=== PATIENT | female | born 1945 | race Caucasian/White ===

== ENCOUNTER 2017-02-24 12:24 | Day surgery (SDC) | payer OTHER, MEDICARE ==
[~2017-02-24 12:24] MED LIST: RINGERS SOLUTION,LACTATED 1,000 ML IV PRN
[2017-02-24] MEDS ORDERED: RINGERS SOLUTION,LACTATED 1,000 ML IV ONE (12:45)
[2017-02-24] MEDS ORDERED: RINGERS SOLUTION,LACTATED 1,000 ML IV PRN (14:09)
[2017-02-24 15:09] VITALS: BP 113/69
--- NOTE | 2017-02-24 17:49 | OR ---
Operative Report - Dictated Report Narrative: Operative Report Date of operation: 02/24/2017 Preoperative diagnosis: History of possible celiac disease. History of colon polyps. No recent dedicated colon studies. Postoperative diagnosis: Hiatal hernia. Gastropathy. Duodenitis (pathology and CLOtest pending). 3 mm polyp at the hepatic flexure. 4 mm polyp at 60 cm ( pathology pending) Operation: EGD with gastric and duodenal biopsies. Colonoscopy with hot biopsy forceps polypectomy at the hepatic flexure. Snare polypectomy and tattoo at 60 cm Surgeon: Dr Andrade Anesthesia: CHRISS PATRICK CRNA Indications for procedure: The patient is a 71-year-old female referred by Dr. Aguirre. The patient had possible celiac disease on a previous EGD although a gluten-free diet has not altered her symptoms. She had 3 tubular adenomas and a hyperplastic polyp removed on colonoscopy in 2003. She had a subsequent colonoscopy in 2004 which was normal. There is no family history of colon cancer Findings: Hiatal hernia. Gastropathy. Duodenitis (pathology and CLOtest pending). 3 mm polyp at the hepatic flexure. 4 mm polyp at 60 cm Narrative of procedure: The patient was identified preoperatively, and prior to the administration of anesthetic a multidisciplinary timeout was observed EGD: With the patient in the recumbent position, a bite-block was placed, intravenous sedation was administered, and the patient's eyes covered with a towel. The flexible fiberoptic gastroscope was advanced into the posterior pharynx which appeared normal. The supraglottic larynx appeared normal. The cords appeared normal, moved well, and opposed in the midline. The scope was advanced under direct vision into the proximal esophagus which appeared normal. The esophagus appeared freely distensible with normal mucosa. The esophageal mucosa appeared normal down to the gastroesophageal junction which was sharp and noninflamed. The GE junction appeared normally distensible. There was a moderate sliding hiatal hernia. The scope was advanced into the stomach proper which was insufflated with air. There was lentz gastritic erythema with several patches of prepyloric submucosal inflammation, but no jhon ulcers or neoplastic -appearing lesions were appreciated. A retroflexed view of the gastric fundus demonstrated the hiatal hernia but revealed no additional lesions. The scope was redirected toward the pylorus. The pylorus appeared patent with several patches of antral submucosal erythema. The scope was advanced into the duodenal bulb which appeared mildly inflamed. The scope was advanced further to the horizontal portion of the duodenum which appeared normal, specifically the villous architecture appeared well preserved and clear bile was present. A biopsy was obtained. The biopsy site was seen to be hemostatic. The scope was slowly withdrawn through the duodenal bulb with confirmation that no active ulcer was present. A community health program representative biopsy of the duodenal bulb was obtained. The site appeared hemostatic. The scope was withdrawn into the stomach and community health program representative biopsies of gastric mucosa obtained for CLOtest and pathology. The biopsy sites were seen to be hemostatic. The insufflated air was removed, the scope withdrawn from the patient, and this portion of the procedure terminated. COLONOSCOPY: The patient was then placed in the left lateral position, and the perineum was inspected. There was no evidence of pilonidal disease or skin breakdown. The external appearance of the anus was normal. Sphincter tone was good. The flexible fiberoptic colonoscope was inserted into the rectum which was insufflated with air. The rectal mucosa and submucosal vascular pattern appeared normal, the prep was seen to be complete. The scope was advanced through the sigmoid colon, up the descending colon, and around the splenic flexure where the triangular haustral architecture of the transverse colon was seen. The scope was advanced across the transverse colon, around the hepatic flexure to the cecum, where the confluence of tenia and the ileocecal valve were identified. The mucosa at this level appeared normal. The scope was then slowly withdrawn in a circular fashion so that all aspects of colonic mucosa were inspected. The colon was relatively normal in course and caliber. The haustral architecture appeared well preserved throughout with no evidence of external compression. The mucosa and submucosal vascular pattern appeared normal, specifically there was no gross evidence to suggest colitis or inflammatory bowel disease and no AV malformations were seen. No diverticulosis was demonstrated. A 3 mm area of polypoid change was encountered at the hepatic flexure. This was biopsied and thoroughly destroyed with electrocautery. The site was seen to be complete hemostatic. At 60 cm a lobulated flat polyp with a central ulcer was encountered. Photographs were obtained and normal and narrow band light. A tattoo was placed adjacent to the polyp. The polyp was then elevated with saline and amputated with the cautery snare. The polyp was retrieved and submitted to pathology. The site appeared to be complete and hemostatic. The scope was gradually withdrawn to the level of the rectum. As much insufflated air as possible was removed. The scope was withdrawn from the patient and the procedure terminated. The patient tolerated the anesthetic and procedure well without complication and was transferred back to the ambulatory surgery area awake and in stable condition. The patient remained stable throughout a period of postoperative observation. She denied abdominal discomfort, was able to tolerate by mouth intake, and was up without assistance. I shared the operative findings with the patient and she was given copies of the photographs which appear in the medical record. She was discharged home with instructions not to engage in hazardous activity today , but may resume normal activity tomorrow, and advance diet as tolerated. She is to continue those medications as listed in the history and physical exam. I made arrangements to contact her with the biopsy reports and will make additional recommendations for treatment and follow-up based upon those results. Reviewed and electronically signed
== END 2017-02-24 12:25 | disposition home or self-care (01) ==
LOC: AMB 12:24
PROVIDERS: ATTEND Surgery
PROC: 0DBL8ZX Excision of Transverse Colon, Via Natural or Artificial Opening Endoscopic, Diagnostic (ICD-10-PCS; 2017-02-24)
PROC: 0DBE8ZX Excision of Large Intestine, Via Natural or Artificial Opening Endoscopic, Diagnostic (ICD-10-PCS; 2017-02-24)
PROC: 0DB98ZX Excision of Duodenum, Via Natural or Artificial Opening Endoscopic, Diagnostic (ICD-10-PCS; principal; 2017-02-24 13:00)
PROC: 0DB68ZX Excision of Stomach, Via Natural or Artificial Opening Endoscopic, Diagnostic (ICD-10-PCS; 2017-02-24 13:00)
DX: Z12.11 Encounter for screening for malignant neoplasm of colon (principal); D12.3 Benign neoplasm of transverse colon; K63.5 Polyp of colon; K29.80 Duodenitis without bleeding; K44.9 Diaphragmatic hernia without obstruction or gangrene; K29.70 Gastritis, unspecified, without bleeding